=== PATIENT | female | born 1970 | race Caucasian/White ===

== ENCOUNTER 2017-02-19 15:40 | Emergency (ER) | payer SELFPAY ==
[~2017-02-19] VITALS: Ht 157.5 cm; Wt 69.8 kg
[2017-02-19 16:40] LABS: UA SPECIFIC GRAVITY <=1.005 (1.005-1.035); microscopic required? YES; urine erythrocyte TRACE (NEGATIVE)
[2017-02-19 16:41] LABS: BASOPHIL % 1.7 % (0-2); PLATELET COUNT 266 x10^3mcL (130-400); RED CELL DISTRIBUTION WIDTH 13.1 % (11.5-14.5)
[2017-02-19 16:48] LABS: CALCIUM 9.4 mg/dL (8.5-10.1); CARBON DIOXIDE 28.5 mmol/L (21-32); CHLORIDE SERUM 104 mmol/L (98-107); CREATININE SERUM 0.8 mg/dL (0.6-1.0); GFR1 > 60 mL/min; GLUCOSE SERUM 102 mg/dL (74-106); POTASSIUM SERUM 4.4 mmol/L (3.5-5.1); SODIUM SERUM 141 mmol/L (136-145)
[2017-02-19 18:15] VITALS: BP 120/64
== END 2017-02-19 18:15 | disposition home or self-care (01) ==
LOC: ED 15:40
PROVIDERS: Emergency Medicine
DX: M54.5 Low back pain (principal); R03.0 Elevated blood-pressure reading, without diagnosis of hypertension; Z88.0 Allergy status to penicillin; Z88.2 Allergy status to sulfonamides; Z88.8 Allergy status to other drugs, medicaments and biological substances
CPT/HCPCS: J1885; J7030; Q0092